=== PATIENT | male | born 1950 | race Caucasian/White ===

== ENCOUNTER 2017-11-02 13:44 | Emergency (ER) | payer OTHER ==
[2017-11-02] MEDS: NS 1,000 ML IV (14:30)
[2017-11-02 14:46] LABS: BASO % 0.3 % (0.0-1.0); EOS % 0.5 % (0.0-3.0); HEMATOCRIT 45.7 % (42.0-52.0); HEMOGLOBIN 16.2 g/dl (14.0-18.0); IMMATURE GRANULOCYTE % 0.5 % (0-0); LYMPH # 1.1 10^3/uL (1.5-4.5); LYMPH % 11.8 % (24.0-44.0); MEAN CORPUSCULAR HEMOGLOBIN 30.9 pg (27.0-33.0); MEAN CORPUSCULAR HGB CONC 35.4 g/dl (32.0-36.5); MONO # 1.1 10^3/uL (0.0-0.8); MONO % 12.4 % (0.0-5.0); NEUTROPHILS # 6.6 10^3/uL (1.8-7.7); NEUTROPHILS % 74.5 % (36.0-66.0); PLATELET COUNT, AUTOMATED 232 10^3/uL (150-450); RED BLOOD COUNT 5.25 10^6/uL (4.30-6.10); WHITE BLOOD COUNT 8.9 10^3/uL (4.0-10.0)
[2017-11-02] MEDS: KETOROLAC 30 MG/ML VIAL (J1885) IV (14:47)
[2017-11-02] MEDS: PANTOPRAZOLE 40MG INJ (PROTONIX) (C9113) IV (14:47)
[2017-11-02] MEDS: ONDANSETRON 4MG/2ML VIAL (J2405) IV (14:48)
[2017-11-02 15:05] LABS: KETONE, URINE AUTO RFX NEGATIVE (NEGATIVE); LEUKOCYTE ESTERASE UR AUTO RFX NEGATIVE (NEGATIVE); NITRITE, URINE AUTO RFX NEGATIVE (NEGATIVE); RBC, URINE AUTO RFX 2 /HPF (0-3); SPECIFIC GRAVITY UR AUTO RFX 1.008 (1.002-1.035); SQUAM EPITHELIAL CELL UR AURFX 0 /HPF (0-6); WBC, URINE AUTO RFX 0 /HPF (0-3)
[2017-11-02 15:11] LABS: ALBUMIN 3.5 GM/DL (3.2-5.2); ALBUMIN/GLOBULIN RATIO 0.92 (1.00-1.93); ALKALINE PHOSPHATASE 169 U/L (45-117); ALT/SGPT 258 U/L (12-78); AMYLASE 34 U/L (25-115); ANION GAP 7 MEQ/L (8-16); AST/SGOT 115 U/L (7-37); BILIRUBIN,DIRECT 2.1 MG/DL (0.0-0.2); BILIRUBIN,TOTAL 3.8 MG/DL (0.2-1.0); BLOOD UREA NITROGEN 13 MG/DL (7-18); CALCIUM LEVEL 9.1 MG/DL (8.8-10.2); CARBON DIOXIDE LEVEL 30 MEQ/L (21-32); CHLORIDE LEVEL 100 MEQ/L (98-107); CREATININE FOR GFR 0.85 MG/DL (0.70-1.30); GLOMERULAR FILTRATION RATE > 60.0 (>49); GLUCOSE, FASTING 140 MG/DL (80-110); LIPASE 562 U/L (73-393); POTASSIUM SERUM 3.3 MEQ/L (3.5-5.1); SODIUM LEVEL 137 MEQ/L (136-145); TOTAL PROTEIN 7.3 GM/DL (6.4-8.2)
[2017-11-02 15:13] LABS: INR 1.05; PROTHROMBIN TIME 13.8 SECONDS (12.4-14.5)
== END 2017-11-02 18:11 | disposition home or self-care (01) ==
LOC: M ED 13:44
DX: K80.10 Calculus of gallbladder with chronic cholecystitis without obstruction (principal); K85.90 Acute pancreatitis without necrosis or infection, unspecified; I48.91 Unspecified atrial fibrillation; I10 Essential (primary) hypertension; K21.9 Gastro-esophageal reflux disease without esophagitis; Z79.899 Other long term (current) drug therapy; Z79.01 Long term (current) use of anticoagulants; Z88.5 Allergy status to narcotic agent; Z87.891 Personal history of nicotine dependence
CPT/HCPCS: C9113

== ENCOUNTER 2017-12-01 08:37 | Day surgery (SDC) | payer OTHER ==
[2017-12-01] MEDS ORDERED: NEOSTIGMINE 10 MG/10 ML VIAL (J2710) (08:38)
[2017-12-01] MEDS ORDERED: LIDOCAINE 1% MDV 20ML VIAL SQ (09:00)
[2017-12-01] MEDS: LR 1,000 ML IV ×2 (09:46→12:35)
[2017-12-01] MEDS ORDERED: MIDAZOLAM INJ 2 MG/2 ML VIAL (J2250) As Ordered (10:04)
[2017-12-01] MEDS ORDERED: fentaNYL 250 MCG/5 ML INJECTION (J3010) As Ordered ×2 (10:04→10:40)
[2017-12-01] MEDS ORDERED: LIDOCAINE 2% INJ 100 MG/5 ML SDV (FOR ANES.) As Ordered (10:10)
[2017-12-01] MEDS ORDERED: ROCURONIUM BROMIDE 50 MG/5 ML VIAL As Ordered ×2 (10:10→10:38)
[2017-12-01] MEDS ORDERED: PROPOFOL 200 MG/20 ML VIAL As Ordered (10:10)
[2017-12-01] MEDS ORDERED: ONDANSETRON 4MG/2ML VIAL (J2405) As Ordered (10:11)
[2017-12-01] MEDS ORDERED: GLYCOPYRROLATE INJ 0.2 MG/ML 2 ML VIAL As Ordered ×2 (10:11)
[2017-12-01] MEDS ORDERED: NEOSTIGMINE 10 MG/10 ML VIAL (J2710) As Ordered (10:11)
[2017-12-01] MEDS ORDERED: ePHEDrine INJ 50 MG/ML VIAL As Ordered (10:14)
[2017-12-01] MEDS ORDERED: PHENYLephrine HCL 500 MCG/5 ML (100MCG/ML) SYRINGE (J2370) As Ordered (10:14)
[2017-12-01] MEDS: LIDOCAINE W/EPINEPHRINE 1% 20ML VIAL As Ordered (12:04)
[2017-12-01] MEDS: fentaNYL 100 MCG/2 ML INJECTION (J3010) IV ×4 (12:16→12:32)
[2017-12-01] MEDS ORDERED: fentaNYL 100 MCG/2 ML INJECTION (J3010) As Ordered (12:16)
[2017-12-01] MEDS: PERCOCET 5MG/325MG TAB PO ×2 (12:16→12:50)
[2017-12-01] MEDS ORDERED: PERCOCET 5MG/325MG TAB As Ordered (12:16)
[2017-12-01] MEDS: MORPHINE 10 MG/ML 1ML VIAL IV ×3 (12:41→13:01)
[2017-12-01] MEDS ORDERED: ONDANSETRON 4MG/2ML VIAL (J2405) IV (12:45)
[2017-12-01] MEDS ORDERED: NORCO, ANEXSIA 5/325MG TABLET (HYDROcodone/ACETAMINOPHEN) PO (12:45)
[2017-12-01] MEDS: KETOROLAC 30 MG/ML VIAL (J1885) IV (14:48)
== END 2017-12-01 16:32 | disposition home or self-care (01) ==
LOC: M SDC 08:37
DX: K80.12 Calculus of gallbladder with acute and chronic cholecystitis without obstruction (principal); K91.61 Intraoperative hemorrhage and hematoma of a digestive system organ or structure complicating a digestive system procedure; K82.8 Other specified diseases of gallbladder; I10 Essential (primary) hypertension; I48.91 Unspecified atrial fibrillation; R00.2 Palpitations; K21.9 Gastro-esophageal reflux disease without esophagitis; Z79.899 Other long term (current) drug therapy; Z79.01 Long term (current) use of anticoagulants; Z88.5 Allergy status to narcotic agent; Z87.891 Personal history of nicotine dependence
CPT/HCPCS: 47562